=== PATIENT | male | born 2000 | race Caucasian/White ===

== ENCOUNTER → 2019-09-05 | Emergency (ER) | payer MEDICAID, OTHER ==
[~2019-09-05] VITALS: Ht 177.8 cm; Wt 72.6 kg
[~2019-09-05] MED LIST: SODIUM CHLORIDE 0.9% 1,000 ML IV ONE; THIAMINE 100mg/ml INJ (200mg/2ml VIAL) IV ONE
[2019-09-05 22:49] LABS: Basophils # (auto) 0 uL; Basophils % (auto) 0.5 % (0.0-2.0); Eosinophils # (auto) 0.1 uL; Eosinophils % (auto) 1.3 % (0.0-7.0); Lymphocytes # (auto) 1.7 uL; Lymphocytes % (auto) 26.8 % (10.0-50.0); Mean Corpuscular Hemoglobin 28.7 pg (28.0-32.0); Mean Corpuscular Hgb Conc. 34.1 g/dL (32.0-36.0); Mean Corpuscular Volume 84.1 fL (80.0-100.0); Monocytes # (auto) 0.5 uL; Monocytes % (auto) 7.7 % (0.0-12.0); Neutrophils % (auto) 63.7 % (37.0-80.0); Nucleated Red Blood Cells % 0.1 %; Platelet Count (auto) 270 10^3/uL (140-450); Red Blood Cells 4.88 10^6/uL (4.5-5.90); White Blood Cell 6.4 10^3/uL (4.4-10.8)
[2019-09-05 23:02] LABS: Albumin 3.6 g/dL (3.4-5.0); BUN/Creatinine Ratio 14.1; Calcium 7.6 mg/dL (8.5-10.1); Magnesium 2.1 mg/dL (1.6-2.6); Potassium 3.6 mmol/L (3.5-5.1)
[2019-09-05 23:05] LABS: Bilirubin, Total 0.2 mg/dL (0.2-1.0); Total Protein 6.9 g/dL (6.4-8.2)
[2019-09-05 23:20] LABS: Urine Bacteria NONE SEEN /hpf (None Seen); Urine Blood Negative /uL (Negative); Urine Specific Gravity 1.005 (1.001-1.035); Urine WBC 10 /hpf (0 - 3)
[2019-09-05 23:21] LABS: Amphetamine Screen, Urine NEGATIVE (NEGATIVE); Barbiturate Scree,Urine NEGATIVE (NEGATIVE); Benzodiazephine Screen, Urine NEGATIVE (NEGATIVE); Cannabinoid Screen, Urine POSITIVE (NEGATIVE); Cocaine Screen, Urine NEGATIVE (NEGATIVE); Opiate Scree,Urine NEGATIVE (NEGATIVE); Phencyclidine Screen, Urine NEGATIVE (NEGATIVE)
[2019-09-06 00:39] VITALS: BP 114/66
== END | disposition home or self-care (01) ==
LOC: EDBD 21:23 → ER 21:27
DX: F10.129 Alcohol abuse with intoxication, unspecified (principal); G92 Toxic encephalopathy; F12.10 Cannabis abuse, uncomplicated; Y90.7 Blood alcohol level of 200-239 mg/100 ml
CPT/HCPCS: 36415; 80053; 80307; 80320; 81001; 83735; 85025; 96361; 96374; 99283; J3411; J7030

== ENCOUNTER 2024-01-03 18:11 | Emergency (ER) | payer MEDICAID ==
[~2024-01-03] VITALS: Ht 190.5 cm; Wt 66.9 kg
[2024-01-04] MEDS ORDERED: IBUP1TAB5 PO (00:12)
[2024-01-04] MEDS: HYDROcodone-ACET 5/325MG TAB PO ONE (02:46)
[2024-01-04 02:50] VITALS: BP 101/74; PULSE 78; RESP 18; TEMP 98.8; O2SAT 99
== END 2024-01-04 03:02 | disposition home or self-care (01) ==
LOC: ER 18:11
DX: S53.492A Other sprain of left elbow, initial encounter (principal); Y08.89XA Assault by other specified means, initial encounter; Y93.89 Activity, other specified; Y92.89 Other specified places as the place of occurrence of the external cause; Y99.8 Other external cause status
CPT/HCPCS: 73090

== ENCOUNTER 2025-07-06 02:23 | Emergency (ER) | payer MEDICAID ==
[~2025-07-06] VITALS: Ht 190.5 cm; Wt 72.6 kg
[~2025-07-06 02:23] MED LIST changes: +IBUP1TAB5 PO; -SODIUM CHLORIDE 0.9% 1,000 ML IV ONE; -THIAMINE 100mg/ml INJ (200mg/2ml VIAL) IV ONE
--- NOTE | 2025-07-06 03:18 | ED.PDOC ---
History of Present Illness HPI Comments [id number] is [id number] ambulance for generalized weakness and numbness sensation status-post hallucinogen indigestion. Patient reports on using hallucinogenic 'mushrooms,' earlier, today. No prior history of hallucinogen use in the past. Vitals stable and within normal limits per EMS personnel patient care report. Since arriving to emergency department, patient states on symptoms resolving on their own and expresses to leave. Time Seen by MD: 02:50 Reviewed Notes: Nurses Notes, Trekking Guide Notes, Medications, Allergies Allergies: Coded Allergies: NO KNOWN ALLERGIES (Unverified , 01/03/24) Home Meds Active Scripts Ibuprofen Micronized (Ibuprofen) 600 Mg Tab, 1 TAB PO Q6HPRN PRN, #20 TAB as needed for pain Prov:DESIREE SALAZAR NP 01/04/24 Information Source: Patient, Emergency Med Personnel Mode of Arrival: EMS Severity: Moderate Timing: Hours Duration: Since onset Prehospital treatment: 12 Lead EKG, Accucheck, Associate Professor Physician Past Medical History PAST MEDICAL HISTORY: Denies Surgical History: Denies all surgeries Family History Family History: Reviewed,noncontributory to illness Social History Smoker: Non-Smoker Alcohol: Occasionally Drugs: Other (shrooms) Lives In: Home All Other Systems: Reviewed and Negative (As per HPI) Physical Exam General Appearance: No Apparent Distress, Normal HEENT: Normal ENT Inspection, Pharynx Normal, TMs Normal Neck: Full Range of Motion, Non-Tender, Normal, Normal Inspection Respiratory: Chest Non-Tender, Lungs Clear, No Accessory Muscle Use, No Respiratory Distress, Normal Breath Sounds Cardiovascular: No Edema, No JVD, No Murmur, No Gallop, Normal Peripheral Pulses, Regular Rate/Rhythm Breast Exam: Deferred Gastrointestinal: No Organomegaly, Non Tender, No Pulsatile Mass, Normal Bowel Sounds, Soft Genitalia: Deferred Pelvic: Deferred Rectal: Deferred Extremities: No calf tenderness, Normal capillary refill, Normal inspection, Normal range of motion, Non-tender, No pedal edema Musculoskeletal : Apperance: Normal Neurologic: Alert, magnetic prospecting supervisor II-XII nml as Tested, No Motor Deficits, No Sensory Deficits, Other (Odd affect ) Cerebellar Function: Normal Reflexes: Normal Skin: Dry, Normal Color, Warm Lymphatic: No Adenopathy Was a procedure done? Was a procedure done?: No Differential Dx Considerations may include: hallucinogen abuse, substance dependency, encephalopathy, among others X-Ray, Labs, Meds, VS Vital Signs Date Time Temp Pulse Resp B/P (MAP) Pulse Ox O2 Delivery O2 Flow Rate FiO2 07/06/25 03:51 98.2 68 18 143/94 99 98.2 Time of 1ST Reevaluation: 03:10 Reevaluation 1ST: Unchanged Patient Education/Counseling: Diagnosis, Need For Follow Up Family Education/Counseling: No Family Present SEPSIS Sepsis Screen Vital Signs Date Time Temp Pulse Resp B/P (MAP) Pulse Ox O2 Delivery O2 Flow Rate FiO2 07/06/25 03:51 98.2 68 18 143/94 99 98.2 Departure 1 Departure Time of Disposition: 04:00 Impression: Primary Impression: Hallucinogen abuse Disposition: 01 HOME / SELF CARE / HOMELESS Condition: Stable Additional Instructions: Follow up with your primary physician Return to the ED for any worsening symptoms or concerns Discharged With: Self Critical Care Note Critical Care Time?: No Stability Stability form required: No Heart Score Heart Score: Heart Score Response (Comments) Value History N/A 0 EKG N/A 0 Age N/A 0 Risk Factors N/A 0 Troponin N/A 0 Total 0 I personally scribed for JOE WU MD ([email or web address]) on 07/06/25 at 03:18. Electronically submitted by Lauro Becerra ([email or web address]). JOE WU MD Jul 06, 2025 03:18
[2025-07-06 03:51] VITALS: BP 143/94; PULSE 68; RESP 18; TEMP 98.2; O2SAT 99
== END 2025-07-06 04:10 | disposition home or self-care (01) ==
LOC: EDBD 02:23 → ER 02:23
DX: F16.10 Hallucinogen abuse, uncomplicated (principal)